=== PATIENT | male | born 1995 | race American Indian/Alaskan Native ===

== ENCOUNTER 2018-03-31 16:20 | Emergency (ER) | payer SELFPAY ==
[2018-03-31 16:41] VITALS: BP 127/62
--- NOTE | 2018-03-31 18:32 | XRay Report ---
FINAL REPORT PROCEDURE: Right ankle. TECHNIQUE: Three views. HISTORY: injured playing basketball COMPARISON: No prior studies are available for comparison. FINDINGS: The bones appear intact without fracture or dislocation. The joint spaces appear normal. The soft tis sues are unremarkable. IMPRESSION: Normal study.
--- NOTE | 2018-03-31 20:44 | Emergency Department Report ---
ED Lower Extremity HPI - General Chief Complaint: Extremity Injury, Lower Stated Complaint: RIGHT ANKLE PAIN Time Seen by Provider: 03/31/18 20:37 Source: patient Mode of arrival: Ambulatory Limitations: No Limitations - History of Present Illness Initial Comments: 22 year old -[place] male presents to the emergency room for right ankle pain and swelling. Patient reports that he injured his right ankle while playing basketball yesterday and when he landed his ankle turned outward. Patient reports that he wrapped it the Daniella [place] and has placed multiple socks to help with the swelling. Patient reports that he did not have any ice or pain medication. Complaint: ankle injury -: days(s) Injury: Ankle: Right Type of Injury: eversion Place: street/outdoors Severity: severe Improves With: nothing Worsens With: weight bearing, palpation Context: jumping Associated Symptoms: swelling, able to partially bear weight Treatments Prior to Arrival: other (none) - Related Data Previous Rx's Medication Instructions Recorded Last Taken Type Ibuprofen [Motrin 600 MG tab] 600 mg PO Q8H #15 tablet 03/31/18 Unknown Rx Allergies Allergy/AdvReac Type Severity Reaction Status Date / Time No Known Allergies Allergy Unverified 03/31/18 16:39 ED Review of Systems ROS: Stated complaint: RIGHT ANKLE PAIN Other details as noted in HPI Comment: All other systems reviewed and negative Musculoskeletal: joint swelling (right ankle), arthralgia (right ankle) ED Past Medical Hx - Past Medical History Previous Medical History?: No - Surgical History Past Surgical History?: No - Social History Smoking Status: Never Smoker Substance Use Type: None - Medications Home Medications: Home Medications Medication Instructions Recorded Confirmed Last Taken Type Ibuprofen [Motrin 600 MG tab] 600 mg PO Q8H #15 tablet 03/31/18 Unknown Rx ED Physical Exam - General Limitations: No Limitations General appearance: alert, in no apparent distress - Head Head exam: Present: atraumatic, normocephalic - Eye Eye exam: Present: EOMI - ENT ENT exam: Present: mucous membranes moist - Expanded Lower Extremity Exam Right Hip exam: Present: full ROM Knee exam: Present: full ROM Lower Leg exam: Present: full ROM Ankle exam: Present: full ROM, tenderness, swelling. Absent: abrasion, laceration, ecchymosis, deformity, erythema Foot/Toe exam: Present: full ROM, swelling. Absent: tenderness, deformity, crepidus Neuro vascular tendon exam: Present: no vascular compromise. Absent: abnormal cap refill - Neurological Exam Neurological exam: Present: alert, oriented X3 - Psychiatric Psychiatric exam: Present: normal affect, normal mood - Skin Skin exam: Present: warm, dry, intact, normal color. Absent: rash ED Course Vital Signs 03/31/18 16:39 Temperature 97.8 F Pulse Rate 64 Respiratory 18 Rate Blood Pressure 127/62 O2 Sat by Pulse 100 Oximetry ED Lower Extremity MDM - Radiology Data Radiology results: report reviewed FINAL REPORT PROCEDURE: Right ankle. TECHNIQUE: Three views. HISTORY: injured playing basketball COMPARISON: No prior studies are available for comparison. FINDINGS: The bones appear intact without fracture or dislocation. The joint spaces appear normal. The soft tissues are unremarkable. IMPRESSION: Normal study. Transcribed By: [facility] Dictated By: EARL STEINER MD Electronically Authenticated By: EARL STEINER MD Signed Date/Time: 03/31/181831 DD/ 34 TD/TT: 03/31/181834 - Medical Decision Making Patient has been evaluated by this provider in fast tract. Ibuprofen 800 mg given for pain management X-ray of right ankle shows normal examination I discussed the patient he needs to use ice elevate and compression. Patient be discharged home on ibuprofen 600 mg 3 times a day when necessary. Critical care attestation.: If time is entered above; I have spent that time in minutes in the direct care of this critically ill patient, excluding procedure time. ED Disposition Clinical Impression: Sprain of right ankle Qualifiers: Encounter type: initial encounter Involved ligament of ankle: anterior t alofibular ligament Qualified Code(s): S93.491A - Sprain of other ligament of right ankle, initial encounter Disposition: TO HOME OR SELFCARE Is pt being admited?: No Does the pt Need Aspirin: No Condition: Stable Instructions: Ankle Stirrup Splint (ED), Ankle Sprain (ED), Ankle Exercises (GEN) Additional Instructions: Please take pain medication as prescribed and increase her water intake. Please wear your ankle stirrup and Evin bandage. Please limit your weight bearing to the minimum to allow your ankle to heal. Prescriptions: Ibuprofen [Motrin 600 MG tab] 600 mg PO Q8H #15 tablet Referrals: [facility] [Provider Group] - 3-5 Days Forms: Work/School Release Form(ED)
[2018-03-31] MEDS ORDERED: IBUPROFEN PO ONE (20:55)
[2018-03-31] MEDS ORDERED: IBUPROFEN ONE (21:04)
== END 2018-03-31 21:20 | disposition home or self-care (01) ==
LOC: ED 16:20
DX: S93.491A Sprain of other ligament of right ankle, initial encounter (principal); W21.05XA Struck by basketball, initial encounter; Y93.67 Activity, basketball; Y92.39 Other specified sports and athletic area as the place of occurrence of the external cause; Y99.8 Other external cause status